=== PATIENT | male | born 1950 | race Caucasian/White ===

== ENCOUNTER 2017-01-26 15:20 | Inpatient (IN) | payer OTHER, BC ==
--- NOTE | 2017-01-26 15:40 | CPEKG ---
Heart Rate: 87 RR Interval: 690 P-R Interval: 188 QRSD Interval: 88 QT Interval: 388 QTC Interval: 467 P [place]: 38 QRS [place]: 0 T Wave [place]: 130 EKG Severity - OTHERWISE NORMAL ECG - EKG Impression: SINUS RHYTHM EKG Impression: VENTRICULAR PREMATURE COMPLEX Electronically Signed By: Nelson Velázquez 26-Jan-2017 21:15:31
--- NOTE | 2017-01-26 15:48 | EDPHY ---
H & P Time Seen by Provider: 01/26/17 15:38 HPI/ROS: Chief complaint. High blood pressure, indigestion HPI. 67-year-old male visiting from [place]. He arrived from [place] 4 days ago. He has a recent new diagnosis of hypertension over the past 3 weeks. He was started on blood pressure meds last week. He has had increased stress. He staying above [place] altitude. Today he was walking on the [facility] and had increased shortness of breath which was unusual for him. He had fullness to abdomen that developed about an hour after lunch. He feels somewhat woozy. His symptoms got better with rest. He has upper abdominal pressure and fullness. No real history of indigestion. Some tightness in his chest without radiation. No fever or cough. No unusual leg pain or swelling. He has had 10 lb weight gain over the past month. Brother with coronary artery disease ROS Constitutional. no fever/chills, no weakness Eyes. no problems with vision ENT. no sore throat, no nasal drainage Cardiovascular. Some chest pain Respiratory. Exertional shortness of breath Abdominal. Upper abdominal fullness . no problems urinating MS. no calf pain/swelling, no neck/back pain, no joint pain Skin. no rash Lymph. no swollen glands Neuro. no headache, no dizziness, no difficulty walking or with speech Past Medical/Surgical History: Sleep apnea with CPAP, new diagnosis hypertension, hernia surgery Social History: , nonsmoker, no alcohol Smoking Status: Never smoked Physical Exam: General Appearance: Alert well-developed male mild distress vital signs are stable Eyes: Pupils equal and round no pallor or injection. ENT, Mouth: Mucous membranes are moist. Respiratory: There are no retractions, lungs are clear to auscultation. Cardiovascular: Regular rate and rhythm. Gastrointestinal: Abdomen is soft and nontender, no masses, bowel sounds normal. Neurological: Awake and alert, sensory and motor exams grossly normal. Skin: Warm and dry, no rashes. Musculoskeletal: Neck is supple nontender. Extremities symmetrical, full range of motion. Psychiatric: Patient is oriented X 3, there is no agitation. Constitutional: Initial Vital Signs Temperature (C) 36.5 C 01/26/17 15:23 Heart Rate 90 01/26/17 15:23 Respiratory Rate 20 01/26/17 15:23 Blood Pressure 164/90 H 01/26/17 15:23 O2 Sat (%) 92 01/26/17 15:23 O2 Delivery Mode Room Air Allergies/Adverse Reactions: sulfamethoxazole [From Bactrim] Allergy (Verified 01/26/17 15:22) trimethoprim [From Bactrim] Allergy (Verified 01/26/17 15:22) Home Medications: Medication Instructions Recorded Amlodipine Besylate [Amlodipine 10 mg PO DAILY 01/26/17 Besylate] Tamsulosin HCl [Tamsulosin HCl] 0.4 mg PO DAILY 01/26/17 Medical Decision Making - Diagnostics EKG Interpretation: EKG interpreted by me shows normal sinus rhythm with left axis deviation QRS is normal. There is slight ST depression in lead aVL. There are occasional PVCs Repeat EKG interpreted by me shows normal sinus rhythm normal interval. There is left axis deviation. QRS is normal. There does appear slight ST depression in 1 and aVL. No significant ST elevation or depression. No arrhythmia. The rate is Imaging Results: Imaging Impressions Chest X-Ray 01/26/17 16:12 Impression: Negative except for minimal left basilar atelectasis. Abdomen Ultrasound 01/26/17 16:13 Impression: Several small gallbladder wall polyps or adherent gallstones. No evidence for cholecystitis. Results called and discussed with Dr. Nelson Velázquez on January 26, 2017 at 1704 hours. Abdominal ultrasound reviewed by me and discussed with Dr. Centeno reveals wall polyp sore small adherent gallstones Procedures: IV normal saline, monitor ED Course/Re-evaluation: Re-evaluation at 5:30 p.m.. The patient, his , and I discussed imaging and lab results. We discussed treatment plan including recommendation for admission and further evaluation he expresses understanding and agreement I consulted and discussed the case with Dr. Fajardo, hospitalist, who agrees to the admission Differential Diagnosis: I am suspicious this is acute coronary syndrome. He complains of indigestion but has really a normal abdominal workup. He has a not normal EKG and his symptoms are worse with exertion and better with rest. Patient [place] and I think his decompensated with coming to altitude. - Data Points Laboratory Results: Laboratory Results 01/26/17 15:50 01/26/17 15:50 01/26/17 01/26/17 01/26/17 15:50 15:50 15:50 WBC 5.62 10^3/uL 10^3/uL (3.80-9.50) RBC 4.86 10^6/uL 10^6/uL (4.40-6.38) Hgb 14.6 g/dL g/dL (13.7-17.5) Hct 43.2 % % (40.0-51.0) MCV 88.9 fL fL (81.5-99.8) MCH 30.0 pg pg (27.9-34.1) MCHC 33.8 g/dL g/dL (32.4-36.7) RDW 13.5 % % (11.5-15.2) Plt Count 184 10^3/uL 10^3/uL (150-400) MPV 11.3 fL fL (8.7-11.7) Neut % (Auto) 70.4 % % (39.3-74.2) Lymph % (Auto) 18.5 % % (15.0-45.0) [place] % (Auto) 8.7 % % (4.5-13.0) Eos % (Auto) 1.6 % % (0.6-7.6) Baso % (Auto) 0.4 % % (0.3-1.7) Nucleat RBC Rel Count 0.0 % % (0.0-0.2) Absolute Neuts (auto) 3.96 10^3/uL 10^3/uL (1.70-6.50) Absolute Lymphs (auto) 1.04 10^3/uL 10^3/uL (1.00-3.00) Absolute Monos (auto) 0.49 10^3/uL 10^3/uL (0.30-0.80) Absolute Eos (auto) 0.09 10^3/uL 10^3/uL (0.03-0.40) Absolute Basos (auto) 0.02 10^3/uL 10^3/uL (0.02-0.10) Absolute Nucleated RBC 0.00 10^3/uL 10^3/uL (0-0.01) Immature Gran % 0.4 % % (0.0-1.1) Immature Gran # 0.02 10^3/uL 10^3/uL (0.00-0.10) D-Dimer 0.35 ug/mLFEU ug/mLFEU (0.00-0.50) Sodium 139 mEq/L mEq/L (134-144) Potassium 3.6 mEq/L mEq/L (3.5-5.2) Chloride 104 mEq/L mEq/L (97-110) Carbon Dioxide 23 mEq/l mEq/l (22-31) Anion Gap 12 mEq/L mEq/L (8-16) BUN 19 mg/dL mg/dL (7-23) Creatinine 0.9 mg/dL mg/dL (0.7-1.3) Estimated GFR > 60 Glucose 193 mg/dL H mg/dL (70-100) Calcium 9.0 mg/dL mg/dL (8.5-10.4) Total Bilirubin 0.7 mg/dL mg/dL (0.1-1.4) Conjugated Bilirubin 0.4 mg/dL mg/dL (0.0-0.5) Unconjugated Bilirubin 0.3 mg/dL mg/dL (0.0-1.1) AST 32 IU/L IU/L (17-59) ALT 34 IU/L IU/L (21-72) Alkaline Phosphatase 63 IU/L IU/L (38-126) Troponin I < 0.012 ng/mL ng/mL (0-0.034) NT-Pro-B Natriuret Pep 83 pg/mL pg/mL (0-125) Total Protein 7.2 g/dL g/dL (6.3-8.2) Albumin 4.4 g/dL g/dL (3.5-5.0) Lipase 221.0 IU/L IU/L (23-300) Medications Given: Discontinued Medications Sodium Chloride (Ns) 1,000 mls @ 0 mls/hr IV ONCE ONE PRN Reason: Wide Open Stop: 01/26/17 16:13 Last Admin: 01/26/17 17:00 Dose: 1,000 mls Departure - Departure Disposition: [facility] Inpatient Acute Clinical Impression: Dyspnea Qualifiers: Dyspnea type: dyspnea on exertion Qualified Code(s): R06.09 - Other forms of dyspnea Condition: Fair
[2017-01-26] MEDS ORDERED: NS 1,000 ML IV ONE (16:12)
[2017-01-26 16:21] LABS: % IMMATURE GRANULYOCYTES 0.4 % (0.0-1.1); ABSOLUTE IMMATURE GRANULOCYTES 0.02 10^3/uL (0.00-0.10); ADD DIFF? NO; ADD MORPH? NO; ADD SCAN? NO; ATYPICAL LYMPHOCYTE FLAG 0 (0-99); FRAGMENT RBC FLAG 0 (0-99); HEMATOCRIT 43.2 % (40.0-51.0); HEMOGLOBIN 14.6 g/dL (13.7-17.5); LEFT SHIFT FLG 10 (0-99); LIPEMIA HEMOLYSIS FLAG 90 (0-99); MEAN CELL HEMOGLOBIN CONCENTR. 33.8 g/dL (32.4-36.7); MEAN CELL VOLUME 88.9 fL (81.5-99.8); MEAN PLATELET VOLUME 11.3 fL (8.7-11.7); PLATELET CLUMPS FLAG 20 (0-99); PLATELET COUNT 184 10^3/uL (150-400); RED BLOOD CELL COUNT 4.86 10^6/uL (4.40-6.38); RED CELL DISTRIBUTION WIDTH 13.5 % (11.5-15.2)
[2017-01-26 16:54] LABS: ALANINE AMINOTRANSFERASE 34 IU/L (21-72); ALBUMIN 4.4 g/dL (3.5-5.0); ALKALINE PHOSPHATASE 63 IU/L (38-126); ANION GAP 12 mEq/L (8-16); ASPARTATE AMINOTRANSFERASE 32 IU/L (17-59); BILIRUBIN,TOTAL 0.7 mg/dL (0.1-1.4); BILIRUBIN-CONJUGATED 0.4 mg/dL (0.0-0.5); BILIRUBIN-UNCONJUGATED 0.3 mg/dL (0.0-1.1); CARBON DIOXIDE 23 mEq/l (22-31); CHLORIDE 104 mEq/L (97-110); CREATININE 0.9 mg/dL (0.7-1.3); GLOMERULAR FILTRATION RATE > 60; GLUCOSE 193 mg/dL (70-100); POTASSIUM 3.6 mEq/L (3.5-5.2); SODIUM 139 mEq/L (134-144); TOTAL PROTEIN 7.2 g/dL (6.3-8.2)
--- NOTE | 2017-01-26 17:00 | CPEKG ---
Heart Rate: 80 RR Interval: 750 P-R Interval: 196 QRSD Interval: 88 QT Interval: 396 QTC Interval: 457 P [place]: 30 QRS [place]: -11 T Wave [place]: 146 EKG Severity - ABNORMAL ECG - EKG Impression: SINUS RHYTHM EKG Impression: ABNORMAL T, CONSIDER ISCHEMIA, LATERAL LEADS Electronically Signed By: Nelson Velázquez 26-Jan-2017 21:14:09
[2017-01-26 17:05] LABS: TROPONIN I < 0.012 ng/mL (0-0.034)
--- NOTE | 2017-01-26 18:01 | PDGENHP ---
History and Physical - Chief Complaint Shortness of breath and abdominal distention - History of Present Illness This 67-year-old male with history of hypertension, obesity, and sleep apnea who is visiting from from [place] who presents to the hospital today with shortness of breath. He was walking around [facility] at 11 o'clock this morning when he felt unusually winded, it was not associated with chest pain, palpitations, or nausea/vomiting. However, the shortness of breath was associated with abdominal distension and feeling and "woozy". His shortness of breath is better with rest. He was evaluated at a local urgent care today when he was found to be hypertensive with systolic blood pressure in the 180s and was subsequently sent over to the emergency department for further evaluation. He was 1st diagnosed with hypertension 2 weeks ago after being seen by his dentist. He saw his primary care provider 1 week ago and was started on amlodipine and has not checked his blood pressure since. He has also been scheduled for a stress test by his primary care provider upon return home. History Information - Allergies/Home Medication List Allergies/Adverse Reactions: sulfamethoxazole [From Bactrim] Allergy (Verified 01/26/17 15:22) trimethoprim [From Bactrim] Allergy (Verified 01/26/17 15:22) Home Medications: Amlodipine Besylate 01/26/17 [Last Taken Unknown] Flomax 01/26/17 [Last Taken Unknown] I have personally reviewed and updated: family history, medical history, social history, surgical history - Past Medical History hyperlipidemia Additional medical history: BPH, sleep apnea, obesity - Surgical History Reports: hernia repair - Social History Smoking Status: Never smoked Alcohol Use: None Drug Use: None Review of Systems ROS: 10pt was reviewed & negative except for what was stated in HPI & below Physical Exam Temp Pulse Resp BP Pulse Ox 36.5 C 85 16 152/82 H 95 01/26/17 15:23 01/26/17 17:15 01/26/17 17:15 01/26/17 17:15 01/26/17 17:15 Constitutional: no apparent distress, appears nourished, not in pain Eyes: PERRL, anicteric sclera, EOMI Ears, Nose, Mouth, Throat: moist mucous membranes, hearing normal, ears appear normal, no oral mucosal ulcers Cardiovascular: regular rate and rhythym, no murmur, rub, or gallop, No edema Respiratory: no respiratory distress, no rales or rhonchi, clear to auscultation , No reduced air movement Gastrointestinal: normoactive bowel sounds, soft, non-tender abdomen, no palpable masses, No tenderness, No guarding, No rebound Genitourinary: no bladder fullness, no bladder tenderness Skin: warm, normal color, no rashes or abrasions, no fluctuance, no induration, No mottled Musculoskeletal: full muscle strength, no muscle tenderness, normal joint ROM, no joint effusions Neurologic: AAOx3, CN II-XII Intact, No facial droop Psychiatric: interacting appropriately, not anxious, not encephalopathic, thought process linear Lymph, Heme, Immunologic: no cervical LAD, no supraclavicular LAD Lab Data & Imaging Review 01/26/17 15:50 01/26/17 15:50 WBC 5.62 10^3/uL (3.80-9.50) 01/26/17 15:50 RBC 4.86 10^6/uL (4.40-6.38) 01/26/17 15:50 Hgb 14.6 g/dL (13.7-17.5) 01/26/17 15:50 Hct 43.2 % (40.0-51.0) 01/26/17 15:50 MCV 88.9 fL (81.5-99.8) 01/26/17 15:50 MCH 30.0 pg (27.9-34.1) 01/26/17 15:50 MCHC 33.8 g/dL (32.4-36.7) 01/26/17 15:50 RDW 13.5 % (11.5-15.2) 01/26/17 15:50 Plt Count 184 10^3/uL (150-400) 01/26/17 15:50 MPV 11.3 fL (8.7-11.7) 01/26/17 15:50 Neut % (Auto) 70.4 % (39.3-74.2) 01/26/17 15:50 Lymph % (Auto) 18.5 % (15.0-45.0) 01/26/17 15:50 [place] % (Auto) 8.7 % (4.5-13.0) 01/26/17 15:50 Eos % (Auto) 1.6 % (0.6-7.6) 01/26/17 15:50 Baso % (Auto) 0.4 % (0.3-1.7) 01/26/17 15:50 Nucleat RBC Rel Count 0.0 % (0.0-0.2) 01/26/17 15:50 Absolute Neuts (auto) 3.96 10^3/uL (1.70-6.50) 01/26/17 15:50 Absolute Lymphs (auto) 1.04 10^3/uL (1.00-3.00) 01/26/17 15:50 Absolute Monos (auto) 0.49 10^3/uL (0.30-0.80) 01/26/17 15:50 Absolute Eos (auto) 0.09 10^3/uL (0.03-0.40) 01/26/17 15:50 Absolute Basos (auto) 0.02 10^3/uL (0.02-0.10) 01/26/17 15:50 Absolute Nucleated RBC 0.00 10^3/uL (0-0.01) 01/26/17 15:50 Immature Gran % 0.4 % (0.0-1.1) 01/26/17 15:50 Immature Gran # 0.02 10^3/uL (0.00-0.10) 01/26/17 15:50 D-Dimer 0.35 ug/mLFEU (0.00-0.50) 01/26/17 15:50 Sodium 139 mEq/L (134-144) 01/26/17 15:50 Potassium 3.6 mEq/L (3.5-5.2) 01/26/17 15:50 Chloride 104 mEq/L (97-110) 01/26/17 15:50 Carbon Dioxide 23 mEq/l (22-31) 01/26/17 15:50 Anion Gap 12 mEq/L (8-16) 01/26/17 15:50 BUN 19 mg/dL (7-23) 01/26/17 15:50 Creatinine 0.9 mg/dL (0.7-1.3) 01/26/17 15:50 Estimated GFR > 60 01/26/17 15:50 Glucose 193 mg/dL (70-100) H 01/26/17 15:50 Calcium 9.0 mg/dL (8.5-10.4) 01/26/17 15:50 Total Bilirubin 0.7 mg/dL (0.1-1.4) 01/26/17 15:50 Conjugated Bilirubin 0.4 mg/dL (0.0-0.5) 01/26/17 15:50 Unconjugated Bilirubin 0.3 mg/dL (0.0-1.1) 01/26/17 15:50 AST 32 IU/L (17-59) 01/26/17 15:50 ALT 34 IU/L (21-72) 01/26/17 15:50 Alkaline Phosphatase 63 IU/L (38-126) 01/26/17 15:50 Troponin I < 0.012 ng/mL (0-0.034) 01/26/17 15:50 NT-Pro-B Natriuret Pep 83 pg/mL (0-125) 01/26/17 15:50 Total Protein 7.2 g/dL (6.3-8.2) 01/26/17 15:50 Albumin 4.4 g/dL (3.5-5.0) 01/26/17 15:50 Lipase 221.0 IU/L (23-300) 01/26/17 15:50 Visualized and Interpreted Chest x-ray results: Yes Chest X-Ray results: no infiltrate, normal Visualized and Interpreted EKG results: Yes EKG Interpretation: Positive for: normal sinsus rhythm ( 80 beats per minute), other ( T-wave flattening in the anterior lateral leads). Negative for: ST elevation, ST depression Assessment & Plan Assessment: This 67-year-old male with history of hypertension, obesity, and sleep apnea who is visiting from from [place] presents with: # exertional shortness of breath most likely related to deconditioning in the setting of travel to altitude versus less likely acute coronary syndrome # abdominal bloating most likely due to indigestion # recently diagnosed hypertension on amlodipine # hyperglycemia with out history of diabetes mellitus plan: - Place in observation due to concerns for acute coronary syndrome - repeat troponin at 6 hours - trial simethicone for indigestion - graded exercise stress test - recommend outpatient follow-up for hyperglycemia and hypertension
[2017-01-26] MEDS ORDERED: ACETAMINOPHEN 325 MG TAB PO PRN (18:26)
[2017-01-26] MEDS ORDERED: ONDANSETRON 4 MG/2 ML VIAL IVP PRN (18:30)
[2017-01-26] MEDS: SIMETHICONE 80 MG TAB CHEW PO SCH (20:43)
[2017-01-27] MEDS: SIMETHICONE 80 MG TAB CHEW PO SCH ×4 (00:16→21:39)
[2017-01-27] MEDS: TAMSULOSIN HCL 0.4 MG CAP PO SCH (09:52)
--- NOTE | 2017-01-27 13:47 | PDCARST ---
CAR Stress Test Results Type of Stress Test: Nuclear TM stress test Indication: dyspnea Description of Procedure: After informed consent was obtained, pt was exercised according to Chaim Protocol. Monitoring was performed with standard stress manual qa tester electrode placement. Vital signs were monitored according to protocol throughout the procedure. STRESS EKG AND HEMODYNAMIC DATA. Exercise time: 5: 30 min. This is equivalent to: 6.5 METS. Resting heart rate: 96 bpm. Resting blood pressure: 140/92 mmHg. Resting O2 saturation: 94%. Peak heart rate: 134 bpm. This is 87% of age predicted maximum heart rate response. Peak blood pressure: 200/92 mmHg. Exercise O2: 88%. Arrhythmias: frequent PVCs, PVC triplets, PVC couplets seen in rest, stress, and recovery. Reason for termination: The test was stopped due to dyspnea similar to what brought him to hospital. Symptoms: The patient experienced no typical symptoms of angina during stress or recovery. STRESS TEST ANALYSIS. Baseline ECG: SR with diffuse ST-T wave abnormality with Twi. Stress EC mm STD. Exercise induced ischemic ECG changes: Yes. Rhythm: Frequent ventricular arrhythmias noted during exercise and recovery in the form of PVCs, PVC couplets, and PVC triplets. Blood pressure: Resting htn with normal blood pressure response to exercise. Exercise tolerance: The patient has average exercise tolerance adjusted for age and gender. Symptoms: Dyspnea with exercise Impression: Abnormal exercise stress test with worsening of baseline abnormality on ECG, frequent ventricular ectopy, and hypoxia with exertion. Conclusion: Await nuclear images.
--- NOTE | 2017-01-27 16:01 | HOSPPROG ---
Hospitalist Progress Note Assessment/Plan: 67 yo M with hx of HTN, obestiy and VIC pw sob with exertion # exertional SHANE: concerning for anginal equivalent possible unstable angina given ecgs personally reviewed and noted changes overnight with new lateral TWI/ flattening in lateral leads. Stress test with worsening st depressions but nuc portion without clear ischemia. Dimer negative. Reviewed with cardiology and plan is for cardiac cath in the am for further evaluation. # abdominal bloating: in the setting of above, abdominal US essentially unremarkable, suspect is 2/2 same issues as above # htn: continue amlodipine # hyperglycemia: likely stress response but will check a1c # dispo: IP status, will need further evaluation including urgent heart catheterization for high risk medical issue Patient new to my care. Old records reviewed/summarized as above. Care plan reviewed with cardiology as above. Further hx obtained from patients present at bedside. Subjective: no significant overnight events, during stress testing patient noted that the same sxs returned Objective: Vital Signs Temp Pulse Resp BP Pulse Ox 36.5 C 66 23 H 150/93 H 93 01/27/17 04:00 01/27/17 08:00 01/27/17 08:00 01/27/17 09:52 01/27/17 08:00 01/26/17 01/27/17 01/28/17 05:59 05:59 05:59 Intake Total 1000 Balance 1000 awake alert nad anicteric op clear rrr nomrg cta b soft nt nd no cce warm dry well perfused - Time Spent With Patient Time Spent with Patient: greater than 35 minutes Time Spent with Patient: Greater than 35 minutes spent on this patients care, greater than 50% of time spent counseling, educating, and coordinating care regarding the above mentioned plan. ICD10 Worksheet Patient Problems: Problems Problem Status Onset Dyspnea Acute
[2017-01-27] MEDS ORDERED: ASPIRIN EC 325 MG TAB PO ONE (16:05)
[2017-01-27] MEDS ORDERED: DIAZEPAM 5 MG TAB PO ONE (16:05)
[2017-01-27] MEDS ORDERED: TEMAZEPAM 15 MG CAP PO PRN (16:05)
[2017-01-27] MEDS ORDERED: NITROGLYCERIN 0.4 MG BTL SL PRN (16:05)
[2017-01-27] MEDS ORDERED: ACETAMINOPHEN 325 MG TAB PO PRN (16:05)
[2017-01-27] MEDS ORDERED: diphenhydrAMINE 25 MG CAP PO ONE (16:05)
--- NOTE | 2017-01-27 17:07 | GCON ---
[f rep st] CONSULTATION CHIEF COMPLAINT: Shortness of breath. HISTORY OF PRESENT ILLNESS: The patient's history started a couple months ago when he started feeli ng tired, much more tired than normal. He was under stress with his pypiey-xg-mar dying at the time. He has a long history of sleep apnea and has been treated for that. He was told a while back that he had high blood pressure by his dentist and his local doctor put him on amlodipine 1 week ago. The day of this dictation is a . Tuesday before this, he was w alking and he felt somewhat short of breath after flying here from [place]. Tuesday, he felt go od and on Tuesday he felt fine. Tuesday, he had some shortness of breath while he was walking in [facility]. Tuesday, he [facility] and felt short of breath even though it was quite flat where he was walking. He had lunch, and he felt lightheaded a nd did not feel very well. He felt off and these sensations of feeling off would come and go. He t hen developed discomfort in the upper abdomen that lasted about 5 hours on Tuesday. He says those are usual symptoms for him. He went to an urgent care center because he was not feeling well. Had a blood pressure of 184 and was admitted to the hospital. He has noticed more and more shortness of breath over the last 2 months while he was walking with hi s . Several weeks ago, he gained 10 pounds in 1 week, and he was not sure why that happened. Diane unger had no swelling of his ankles, and he felt that his pants were tighter due to his overall weight g ain. He has not had nausea, vomiting, diarrhea, or constipation. He has not had fever, chills, or cough. Not had rashes or arthralgias. He has not had headaches or stiff neck. He has not had trauma to the head, neck, or chest. He tries to be very active. He has no history of atrial fibrillation, palpitations, skipped heartbeats. He does not have dysuria or frequency. He does have BPH and has a history of a small prostate cance r which is not being treated. About 2 months ago, when he started feeling tired, he actually switched from a pillow type nose pron g that he was using for his sleep apnea to a new sleep apnea machine which is not quite working as w deacon as he wanted and he is wondering if changing his sleep apnea apparatus has contributed to some o f his shortness of breath and fatigue over the last while. His cardiac risk factors are positive for hypertension, hyperlipidemia, for being overweight. He dillard s a history of sleep apnea. Cardiac risk factors are also negative for smoking, hyperuricemia, and diabetes mellitus. He has no family history of premature coronary disease. He is not sure why he has been feeling quite so poorly and is here to have a further evaluation. Wh en he came to the emergency room yesterday, his blood pressure was in the 180 range. He had been first to an urgent care center and it was 184. ALLERGIES: Sulfamethoxazole/trimethoprim. MEDICATIONS: Amlodipine, Flomax. PAST SURGICAL HISTORY: Status post hernia repair. FAMILY HISTORY: He has no family history of premature coronary disease. No history of unexplained sudden at a young age. SOCIAL HISTORY: He lives with his who is here with him. His rxyqro-ib-hlh just several w eeks ago and that was very difficult. He is quite active, walking with his on a daily basis, u sujuliocesar in the morning in [place] that [place] right near where they live. They live in [place], [place]. He was born in [place], [place]. 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 He has been walking less than usual for the last several months because he has not felt right. He does not smoke. He does not drink significant amounts of alcohol. REVIEW OF SYSTEMS: A 12-point review of systems negative except as noted above. PHYSICAL EXAMINATION: VITAL SIGNS: His blood pressure is 150/70, heart rate 80, respiratory rate 1 4. HEENT: Pupils are equal and reactive. Mucous membranes of the mouth moist. NECK: Supple. CA RDIOVASCULAR: S1, S2. Soft systolic murmur in left sternal border. No diastolic murmur. No S3, S 4, or rubs. PULMONARY: Rhonchi bilaterally. No rales, wheezing, or dullness. ABDOMEN: Soft, non tender, without masses. EXTREMITIES: No edema, inflammation, or ulceration. NEUROLOGIC: Cranial nerves 2-12 grossly normal. Motor and sensory appear to be intact. PSYCH: No obvious anxiety or d epression. SKIN: Has age-related changes. LABORATORY DATA: White count is 5.6, hematocrit 43, platelets are 184. D-dimer is 0.35 which is no rmal. Sodium 139, potassium 3.6, chloride 104, CO2 23, BUN 19, creatinine 0.9. He has had a chest x-ray while he has been here in the hospital and it shows negative except for min imal left basilar atelectasis. Abdominal ultrasound was done while he was here in the hospital and showed several small gallbladder wall polyps or adherent gallstones. No evidence for cholecystitis. He had an exercise tolerance test today, and he developed ST-segment depression of 1 mm with exercis e. The patient's baseline EKG was abnormal with nonspecific ST-T flattening. The test was stopped because he got dyspnea. He had frequent PVCs during exercise and recovery. Nuclear images show no fixed or ischemic regions. BNP and troponins are negative. ASSESSMENT AND PLAN: 1. Shortness of breath. 2. Obesity. 3. Hypertension. 4. Hyperlipidemia. 5. Sleep apnea. 6. Fatigue. 7. Transient weight gain. 8. History of benign prostatic hyperplasia with prostate cancer. He has had nuclear imaging study which shows no ischemia. However, his shortness of breath is worri some and it could represent ischemia. His significant number of PVCs with exercise and his ST-segme nt depression worry me. He could have a false-negative nuclear stress test. He has many risk factors with his obesity, hypertension, hyperlipidemia, long standing sleep apnea t o have coronary artery disease, and I think with all his PVCs, we should be watching him carefully a nd do a coronary angiogram before he goes home. He has decided to do that, and I will write the orders. He will monitor very carefully in the future his hypertension, his hyperlipidemia and watch obesity. In terms of the other causes for his shortness of breath, it could be a reaction to the altitude. I do not think it is pulmonary embolic disease as his D-dimer is negative. He does not have any other significant cause for shortness of breath such as infection. He is not h aving cough, hemoptysis, etc. So, I would recommend we go for coronary angiography, make sure he is okay and conduct further veto p as indicated later. He has agreed to coronary angiography. He knows the risks and options and I spent a half hour talki ng to he and his about the procedure. So, we will arrange for this in the morning. /[id number]/MODL
[2017-01-27 17:26] LABS: HEMOGLOBIN A1C 6.1 % (4.0-6.0)
[2017-01-28 05:22] LABS: % IMMATURE GRANULYOCYTES 0.4 % (0.0-1.1); ABSOLUTE IMMATURE GRANULOCYTES 0.02 10^3/uL (0.00-0.10); ADD DIFF? NO; ADD MORPH? NO; ADD SCAN? NO; ATYPICAL LYMPHOCYTE FLAG 20 (0-99); FRAGMENT RBC FLAG 0 (0-99); HEMATOCRIT 44.8 % (40.0-51.0); HEMOGLOBIN 14.9 g/dL (13.7-17.5); LEFT SHIFT FLG 10 (0-99); LIPEMIA HEMOLYSIS FLAG 80 (0-99); MEAN CELL HEMOGLOBIN 29.5 pg (27.9-34.1); MEAN CELL HEMOGLOBIN CONCENTR. 33.3 g/dL (32.4-36.7); MEAN CELL VOLUME 88.7 fL (81.5-99.8); MEAN PLATELET VOLUME 10.7 fL (8.7-11.7); PLATELET CLUMPS FLAG 0 (0-99); PLATELET COUNT 186 10^3/uL (150-400); RED BLOOD CELL COUNT 5.05 10^6/uL (4.40-6.38); RED CELL DISTRIBUTION WIDTH 13.4 % (11.5-15.2)
[2017-01-28] MEDS ORDERED: ASPIRIN EC 325 MG TAB PO ONE (06:00)
[2017-01-28] MEDS ORDERED: DIAZEPAM 5 MG TAB PO ONE (06:00)
[2017-01-28] MEDS ORDERED: diphenhydrAMINE 25 MG CAP PO ONE (06:00)
[2017-01-28 06:03] LABS: ALANINE AMINOTRANSFERASE 31 IU/L (21-72); ALBUMIN 3.9 g/dL (3.5-5.0); ALKALINE PHOSPHATASE 52 IU/L (38-126); ANION GAP 12 mEq/L (8-16); ASPARTATE AMINOTRANSFERASE 19 IU/L (17-59); BILIRUBIN,TOTAL 0.9 mg/dL (0.1-1.4); CALCIUM 8.6 mg/dL (8.5-10.4); CARBON DIOXIDE 25 mEq/l (22-31); CHLORIDE 107 mEq/L (97-110); CREATININE 0.9 mg/dL (0.7-1.3); GLOMERULAR FILTRATION RATE > 60; GLUCOSE 109 mg/dL (70-100); POTASSIUM 3.1 mEq/L (3.5-5.2); SODIUM 144 mEq/L (134-144); TOTAL PROTEIN 6.4 g/dL (6.3-8.2)
[2017-01-28] MEDS: TAMSULOSIN HCL 0.4 MG CAP PO SCH (06:24)
[2017-01-28] MEDS ORDERED: POTASSIUM CL 20 MEQ TAB PO ONE (09:00)
[2017-01-28] MEDS ORDERED: LIDOCAINE 1% 30 ML SDV ONE (09:04)
[2017-01-28] MEDS ORDERED: fentaNYL 100 MCG/2 ML INJ ONE (09:04)
[2017-01-28] MEDS ORDERED: MIDAZOLAM 2 MG/2 ML VIAL ONE (09:04)
[2017-01-28] MEDS ORDERED: IOPAMIDOL (ISOVUE-370) 150 ML BTL IV ONE (09:05)
--- NOTE | 2017-01-28 10:15 | CPIP ---
[f rep st] INVASIVE CARDIAC PROCEDURE PROCEDURE: Left heart catheterization, left ventriculogram, right and left coronary arteriogram. COMPLICATIONS: None. CONDITION AT DISCHARGE: Excellent. ESTIMATED BLOOD LOSS: 10 cc. INDICATIONS: The patient has an abnormal baseline EKG. He came into the hospital with shortness of breath that has been getting worse. He has had more fatigue. With his stress test, he had deepening ST-segment changes with normal nuclear imaging. He has multiple risk factors for coronary artery disease. With his stress test , he had many ventricular premature beats. So we proceeded to coronary angiography to rule out significant obstructive coronary disease. FINDINGS: ANGIOGRAPHY: 1. Left main coronary artery normal. 2. Left anterior descending artery has intimal disease. 3. Diagonal 1 has 75% stenosis, diagonal 2 has 75% stenosis, and multiple other smaller lesions in both vessels. The circumflex has 20% mid intimal disease present. 4. The right coronary artery has intimal disease present and is dominant. LEFT VENTRICULOGRAM: 1. Normal left ventricular chamber dimension. 2. Normal left ventricular systolic function. 3. No significant mitral regurgitation. LEFT HEART CATHETERIZATION: 1. Left ventricular end-diastolic pressure 10 mmHg. 2. No aortic stenosis. CONDITION AT END OF STUDY: Excellent. RECOMMENDATION: Very aggressive secondary prevention. Results have been discussed with the patient. /[id number]/MODL MTDD
[2017-01-28] MEDS: SIMETHICONE 80 MG TAB CHEW PO SCH (11:26)
--- NOTE | 2017-01-28 13:58 | SOAPPROG ---
SOAP Progress Note Assessment/Plan: Assessment: 1. Shortness of breath To hypertension 3. Hyperlipidemia 4. Abnormal stress test 5. Fatigue 6. Sleep apnea 7. Prostatic cancer. He has multiple reasons for his fatigue and shortness of breath and his shortness of breath with walking in his decreased exercise tolerance. He certainly is deconditioned markedly overweight. Has not been exercising very significantly on a regular basis. He has gained 10 lb. He has risk factors for coronary disease including hypertension hyperlipidemia and obesity. He has sleep apnea. At this point time he would like to undergo coronary angiography. Think it is a very good study for him he has had an abnormal EKG at baseline and was more abnormal with exercise. He has fatigue he way too early. He may well have some other significant problem we need to keep an eye on what he does have now he is doing. His nuclear images did not show ischemia but his EKG was abnormal and of concern he had a lot of ventricular ectopy with exercise. And I have talked about prevention extensively I have talked to his extensively answer questions. Has sleep apnea we have gone over some options he has about changing around his mask so I would work better for him. Will follow him through the weekend no matter what the coronary angiography shows because I am union carpenter and I will be available to him. I will make sure the get copies of the records to take [place] so we can see the manager consumer insights is going to see next week. Plan: 01/28/17 13:55 Subjective: He has no chest pain He is not having shortness of breath He is feeling quite comfortable lying in hospital bed. He is not having orthopnea PND or dyspnea on exertion. He has no fevers chills or cough. He has been walking around this morning feeling quite well. He has no nausea vomiting No known lightheadedness dizziness palpitations. Objective: Vital Signs Temp Pulse Resp BP Pulse Ox 36.2 C 76 16 117/74 94 01/28/17 13:00 01/28/17 13:00 01/28/17 13:00 01/28/17 13:00 01/28/17 13:00 Laboratory Results 01/28/17 04:56 01/28/17 04:56 Physical Exam - Physical Exam General Appearance: no apparent distress Neck: supple Cardiac/Chest: regular rate, rhythm, systolic murmur Abdomen: normal bowel sounds, non-tender, soft, No organomegaly Skin: normal color, warm/dry Extremities: non-tender, normal inspection Neuro/Psych: alert, normal mood/affect, oriented x 3 ICD10 Worksheet Patient Problems: Problems Problem Status Onset Dyspnea Acute
--- NOTE | 2017-01-28 14:35 | ECHO ---
[id number] + + [address] : : [place] [address] : : [phone] + Adult Echocardiographic Report + --------+ :Name: CANDELARIO DUENAS KStudy Date: 01/27/2017 04:12 PM : : Hospital Admission Number: [id number] Locat ion: 144: :: 1950 Gender: Male Height: 67 in : :Age: 67 yrs Race: WH Weight: 225 l b : :Reason For Study: PVC's : : BSA: 2.1 mete rs2 : + --------+ MMode/2D Measurements \T\ Calculations IVSd: 0.80 cm LVIDd: 5.6 cm FS: 37.6 % Ao root diam: 3.5 cm LVPWd: 1.1 cm LVIDs: 3.5 cm EDV(Teich): 152.4 ml LA dimension: 4.3 cm ESV(Teich): 50.2 ml EF(Teich): 67.1 % LVOT diam: 2.1 cm LVOT area: 3.5 cm2 Normal Measurement Values: + + :LVIDd (3.5-5.7cm) IVSd (0.6-1.1cm) LVPWd (0.6-1.1cm) Aortic Root (2.0-3.7cm)Left Atrium (1.5-4.0cm): :LV Vol(d) (76-115ml) LV Vol(s) (29-48ml) Ejec Fraction (50-65%)PV Elgin (0.6- 1.2m/s) TV Elgin (0.4-1.0m/s) : :MV E Elgin (0.8-1.0m/s)MV A Elgin (0.3-1.0m/s)LVOT Elgin (0.7-1.2m/s) Asc Ao Elgin ( 0.9-1.8m/s) : + + Doppler Measurements \T\ Calculations MV E max elgin: Ao V2 max: LV V1 max: SV(LVOT): 73.5 cm/sec 213.0 cm/sec 88.0 cm/sec 63.7 ml MV A max elgin: Ao max P.2 mmHg LV V1 max P.8 cm/sec Ao mean P.1 mmHg MV E/A: 0.80 10.0 mmHg LV V1 mean PG: Ao V2 mean: 2.0 mmHg 151.5 cm/sec LV V1 mean: Ao V2 VTI: 43.9 cm 59.7 cm/sec LV V1 VTI: 18.4 cm SURINDER(I,D): 1.5 cm2 SURINDER(V,D): 1.4 cm2 Left Ventricle The left ventricle is normal in size. Apical hypertrophy is present. Left ventricular systolic function is normal. Ejection Fraction = 65-70%. No regional wall motion abnormalities noted. Right Ventricle The right ventricle is normal in size and function. Atria The left atrial size is normal. Right atrial size is normal. The interatrial septum is intact with no evidence for an atrial septal defect. Mitral Valve The mitral valve is normal in structure and function. There is no evidence of mitral valve prolapse. There is no mitral valve stenosis. There is trace mitral regurgitation. Tricuspid Valve Normal tricuspid valve. Aortic Valve The aortic valve opens well. Mild AO calcification. Mild valvular aortic stenosis. AV max PG is 19mmHG. AV mean PG is 10mmHG. There is no aortic insufficiency. Pulmonic Valve The pulmonic valve is normal in structure and function. Great Vessels The aortic root is normal size. Pericardium/Pleural Trivial anterior pericardial effusion. Conclusion A complete two-dimensional transthoracic echocardiogram was performed (2D, M-mode, Doppler and color flow Doppler). Left ventricular systolic function is normal. Ejection Fraction = 65-70%. Apical hypertrophy is present. There is trace mitral regurgitation. Mild AO calcification. Mild valvular aortic stenosis. AV max PG is 19mmHG. AV mean PG is 10mmHG. Trivial anterior pericardial effusion Final Reading Physician: Radhika Robles signed on 01/28/2017 02:34 PM Ordering Physician: Kathleen Rivera Performed By: Nubia Barnes, CHRISCS
[2017-01-28 14:46] VITALS: BP 117/70; PULSE 70; RESP 17; TEMP 97.5; O2SAT 93
--- NOTE | 2017-02-04 21:14 | GDS ---
[f rep st] DISCHARGE SUMMARY DISCHARGE DIAGNOSES: 1. Exertional dyspnea. 2. Abnormal stress test. 3. Hypertension. 4. Hyperlipidemia. 5. Sleep apnea. CONSULTATIONS: Cardiology. PROCEDURES PERFORMED: 1. Abdominal ultrasound. 2. Myocardial perfusion imaging stress test. 3. Echocardiogram. 4. Cardiac catheterization. HOSPITAL COURSE BY PROBLEM: 1. Shortness of breath/dyspnea on exertion. This was concerning for possible cardiac etiology. He did have an abnormal stress test. Ultimately echocardiogram, coronary angiography were performed, which were negative for ischemia. He had a negative D-dimer. It was felt that these symptoms were likely multifactorial in the setting of being overweight and recently moving to [place]. He has al so had some issues with his sleep apnea treatments, difficulty tolerating his mask, and this is miguel parehk addressed through his oxygen provider. 2. Abdominal bloating. Ultrasound unremarkable. His exam was benign. Unclear etiology. Query if this is due to indigestion versus just weight gain with a more pronounced visceral component. 3. Chronic medical issues including hypertension and hyperlipidemia. 4. Sleep apnea. Again, patient is working with his oxygen company in order to obtain a more approp riately fitting mask. DISPOSITION: Discharge is to home. GENITOURINARY: Followup is with PCP, as well as Cardiology. Greater than 35 minutes spent to discharge the patient. More than half in coordination of care, as well as counseling patient and his regarding follow-up care plans. /[id number]/MODL
== END 2017-01-28 14:46 | disposition home or self-care (01) | DRG 204 ==
LOC: F1N 18:26 → OBSVTOIN 01-27 16:04
PROVIDERS: ADMIT Family Medicine; ATTEND Family Medicine
DX: R06.02 Shortness of breath (principal); R94.31 Abnormal electrocardiogram [ECG] [EKG]; R14.0 Abdominal distension (gaseous); I25.10 Atherosclerotic heart disease of native coronary artery without angina pectoris; G47.33 Obstructive sleep apnea (adult) (pediatric); E78.5 Hyperlipidemia, unspecified; I10 Essential (primary) hypertension; Z85.46 Personal history of malignant neoplasm of prostate; E66.9 Obesity, unspecified; Z68.35 Body mass index [BMI] 35.0-35.9, adult
CPT/HCPCS: A9500; C1760; G0378; J1644; J2250; J3010; Q9967